=== PATIENT | female | born 1985 | race African-American/Black ===

== ENCOUNTER 2017-08-14 16:37 | Emergency (ER) | payer SELFPAY ==
[~2017-08-14] VITALS: Ht 170.2 cm; Wt 122.0 kg
[2017-08-14 17:08] LABS: BILIRUBIN,URINE NEGATIVE (NEG); GLUCOSE,URINE NEGATIVE (NEG); NITRITE,URINE NEGATIVE (NEG); PH,URINE 7.5; PROTEIN,URINE NEGATIVE (NEG-TRACE); UROBILINOGEN,URINE 0.2 mg/dL (0.2 mg/dL)
[2017-08-14 17:35] LABS: BACTERIA,URINE 0 /HPF (0-FEW); RBC,URINE RARE /HPF (0-2); SQUAMOUS EPITHELIAL CELL,UR FEW /LPF; WBC,URINE 0 /HPF (0-4)
[2017-08-14 17:50] LABS: BASO # 0.1 x10^3/uL (0.0-0.2); BASO % 1 % (0-3); EOS % 5 % (0-3); HEMATOCRIT 36.1 % (36.0-47.0); LYMPH % 35 % (24-48); MEAN CORPUSCULAR HEMOGLOBIN 27 pg (25-35); MEAN CORPUSCULAR HGB CONC 33 g/dL (31-37); MEAN CORPUSCULAR VOLUME 80 fL (79-100); MONO % 8 % (0-9); NEUT % 52 % (31-73); PLATELET COUNT 194 x10^3/uL (140-400); RED BLOOD COUNT 4.52 x10^6/uL (3.50-5.40); WHITE BLOOD COUNT 8.8 x10^3/uL (4.0-11.0)
[2017-08-14 18:00] LABS: CALCIUM 8.9 mg/dL (8.5-10.1); CREATININE 0.9 mg/dL (0.6-1.0); GFR 73.5; POTASSIUM 3.9 mmol/L (3.5-5.1)
[2017-08-14 18:06] LABS: ALBUMIN 3.6 g/dL (3.4-5.0); ALBUMIN/GLOBULIN RATIO 0.9 (1.0-1.7); TOTAL BILIRUBIN 0.1 mg/dL (0.2-1.0); TOTAL PROTEIN 7.4 g/dL (6.4-8.2)
[2017-08-14] MEDS: IV RINGERS,LACTATED 1000ML 1,000 ML IV SCH (18:12)
[2017-08-14] MEDS: fentaNYL PF VIAL 100 MCG/2 ML VIAL IV PRN (18:13)
[2017-08-14] MEDS: ONDANSETRON PF 4 MG/2 ML VIAL. IV ONE (18:14)
[2017-08-14] MEDS: KETOROLAC 30 MG/ML INJ. IV ONE (18:14)
--- NOTE | 2017-08-14 19:17 | ED.ADGEN ---
Past Medical History Past Medical History: Anemia, Asthma, Other Additional Past Medical Histor: SICKLE CELL TRAIT, GENITAL HERPES Past Surgical History: Other Additional Past Surgical Histo: ELBOW SX Alcohol Use: None Drug Use: None Adult General Chief Complaint Chief Complaint: ABDOMINAL PAIN HPI HPI Patient is a 32 year old woman, history of anemia, genital herpes, who presents to the emergency department with complaint of sudden onset of left pelvic pain that began approximately an hour and a half to 2 hours prior to arrival. Patient's issues at work which began experiencing sharp shooting pain in her left pelvic region, states associated with mild nausea, states she is not taking any medication prior to coming to the ED. Patient states she has very uncomfortable, states the pain is radiating to her back somewhat, also up into the periumbilical region, denies any similar symptoms previously, denies any urinary complaints, any discharge or drainage from the vagina, any lesions in the vagina, any concerns for STI exposure, states that she was last sexually active 2 days ago, no insertions or injuries to the vagina, abdomen or the back. No swelling extremities, no rashes, no chest pain or shortness breath, no weakness, numbness or tingling. No cough, fevers or chills. Denies any possibility of . Review of Systems Review of Systems Constitutional: Denies fever or chills. [] Eyes: Denies change in visual acuity. [] HENT: Denies nasal congestion or sore throat. [] Respiratory: Denies cough or shortness of breath. [] Cardiovascular: Denies chest pain or edema. [] GI: Pelvic pain, associated with nausea, no vomiting, bloody stools or diarrhea. : Denies dysuria. [] Musculoskeletal: Denies back pain or joint pain. [] Integument: Denies rash. [] Neurologic: Denies headache, focal weakness or sensory changes. [] Endocrine: Denies polyuria or polydipsia. [] Lymphatic: Denies swollen glands. [] Psychiatric: Denies depression or anxiety. [] Current Medications Current Medications Current Medications Medications (Trade) Dose Ordered Sig/Manuel Start Time Stop Time Status Last Admin Dose Admin Acetaminophen/ Hydrocodone Bitart (Lortab 5/325) 1 tab 1X ONCE 08/14/17 21:30 08/14/17 21:31 DC Fentanyl Citrate (Fentanyl 2ml Vial) 25 mcg PRN Q15MIN PRN 08/14/17 17:45 08/15/17 17:44 08/14/17 18:13 25 MCG Ketorolac Tromethamine (Toradol) 10 mg 1X ONCE 08/14/17 18:15 08/14/17 18:16 DC 08/14/17 18:14 10 MG Ondansetron HCl (Zofran) 4 mg 1X ONCE 08/14/17 18:15 08/14/17 18:16 DC 08/14/17 18:14 4 MG Ringer's Solution 1,000 ml @ 1,000 mls/hr Q1H 08/14/17 17:40 08/14/17 18:39 DC 08/14/17 18:12 1,000 MLS/HR Allergies Allergies Allergies Coded Allergies Type Severity Reaction Last Updated Verified No Known Drug Allergies 08/14/17 No Physical Exam Physical Exam Constitutional: Well developed, well nourished, no acute distress, non-toxic appearance. [] HENT: Normocephalic, atraumatic, bilateral external ears normal, oropharynx moist, no oral exudates, nose normal. [] Eyes: PERRLA, EOMI, conjunctiva normal, no discharge. [] Neck: Normal range of motion, no tenderness, supple, no stridor. [] Cardiovascular:Heart rate regular rhythm, no murmur , S1, S2, no rubs or gallops.[] Lungs & Thorax: Bilateral breath sounds clear to auscultation, no wheezing, rhonchi, rales. No chest wall crepitus or tenderness. [] Abdomen: Bowel sounds normal, soft, patient was tender to palpation the suprapubic region, and in the pelvis, left-sided greater than right, no pain above the pelvic region, no masses, no pulsatile masses. [] Skin: Warm, dry, no erythema, no rash. [] Back: No tenderness, no CVA tenderness. [] Extremities: No tenderness, no cyanosis, no clubbing, ROM intact, no edema. [] Neurologic: Alert and oriented X 3, normal motor function, normal sensory function, no focal deficits noted. [] Psychologic: Affect normal, judgement normal, mood normal. [] Pelvic examination: Patient external examination is normal without any lesions or abnormalities identified. I am anal examination reveals reproducible symptoms with cervical motion tenderness, tenderness palpation in both adnexa which is mild, without any masses palpated. Speculum examination reveals moderate amount of white discharge, cervix without friability, no bleeding, lesions, or other maladies identified. Specimens taken without issue. Current Patient Data Vital Signs Vital Signs Date Time Temp Pulse Resp B/P (MAP) Pulse Ox O2 Delivery O2 Flow Rate FiO2 08/14/17 21:00 70 16 87/50 (62) 97 Room Air 08/14/17 16:38 98.5 98.5 Lab Values Laboratory Tests Test 08/14/17 16:45 08/14/17 16:57 White Blood Count 8.8 x10^3/uL (4.0-11.0) Red Blood Count 4.52 x10^6/uL (3.50-5.40) Hemoglobin 12.0 g/dL (12.0-15.5) Hematocrit 36.1 % (36.0-47.0) Mean Corpuscular Volume 80 fL (79-100) Mean Corpuscular Hemoglobin 27 pg (25-35) Mean Corpuscular Hemoglobin Concent 33 g/dL (31-37) Red Cell Distribution Width 14.0 % (11.5-14.5) Platelet Count 194 x10^3/uL (140-400) Neutrophils (%) (Auto) 52 % (31-73) Lymphocytes (%) (Auto) 35 % (24-48) Monocytes (%) (Auto) 8 % (0-9) Eosinophils (%) (Auto) 5 % (0-3) H Basophils (%) (Auto) 1 % (0-3) Neutrophils # (Auto) 4.6 x10^3uL (1.8-7.7) Lymphocytes # (Auto) 3.0 x10^3/uL (1.0-4.8) Monocytes # (Auto) 0.7 x10^3/uL (0.0-1.1) Eosinophils # (Auto) 0.4 x10^3/uL (0.0-0.7) Basophils # (Auto) 0.1 x10^3/uL (0.0-0.2) Sodium Level 139 mmol/L (136-145) Potassium Level 3.9 mmol/L (3.5-5.1) Chloride Level 103 mmol/L (98-107) Carbon Dioxide Level 26 mmol/L (21-32) Anion Gap 10 (6-14) Blood Urea Nitrogen 14 mg/dL (7-20) Creatinine 0.9 mg/dL (0.6-1.0) Estimated GFR (Cockcroft-Gault) 73.5 BUN/Creatinine Ratio 16 (6-20) Glucose Level 98 mg/dL (70-99) Calcium Level 8.9 mg/dL (8.5-10.1) Total Bilirubin 0.1 mg/dL (0.2-1.0) L Aspartate Amino Transferase (AST) 18 U/L (15-37) Alanine Aminotransferase (ALT) 18 U/L (14-59) Alkaline Phosphatase 62 U/L (46-116) Total Protein 7.4 g/dL (6.4-8.2) Albumin 3.6 g/dL (3.4-5.0) Albumin/Globulin Ratio 0.9 (1.0-1.7) L Lipase 153 U/L (73-393) Urine Collection Type Void Urine Color Straw Urine Clarity Clear Urine pH 7.5 Urine Specific [place] 1.015 Urine Protein Negative mg/dL (NEG-TRACE) Urine Glucose (UA) Negative mg/dL (NEG) Urine Ketones (Stick) Negative mg/dL (NEG) Urine Blood Negative (NEG) Urine Nitrite Negative (NEG) Urine Bilirubin Negative (NEG) Urine Urobilinogen Dipstick 0.2 mg/dL (0.2 mg/dL) Urine Leukocyte Esterase Negative (NEG) Urine RBC Rare /HPF (0-2) Urine WBC 0 /HPF (0-4) Urine Squamous Epithelial Cells Few /LPF Urine Bacteria 0 /HPF (0-FEW) POC Urine HCG, Qualitative Hcg negative (Negative) Laboratory Tests 08/14/17 16:45 Laboratory Tests 08/14/17 16:45 Microbiology 08/14/17 Wet Prep - Final, Complete EKG EKG Not indicated.[] Radiology/Procedures Radiology/Procedures [][facility] [address] [place] [address] IMAGING REPORT Signed PATIENT: ROSALINDA JANE ACCOUNT: [id number] : 1985 LOCATION: ER AGE: 32 SEX: F EXAM STATUS: REG ER ORD. PHYSICIAN: DC MINER DO REASON: Pelvic pain, CMT, L abd pain PROCEDURE: PELVIS W/TV EXAM: PELVIS W/TV HISTORY: pelvic pain COMPARISON: None. TECHNIQUE: Transverse and longitudinal sonography of the pelvis is performed utilizing transabdominal and transvaginal transducers. FINDINGS: Transabdominal imaging demonstrates an anteflexed uterus measuring 9.1 x 4.2 x 4.6 cm. Endometrial thickness measured at 7 mm. No focal myometrial abnormality is seen on the provided images. Left ovary visualized measuring 3.4 x 2.0 x 3.2 cm, with internal blood flow documented. Right ovary visualized measuring 4.0 x 3.7 x 4.2 cm, with internal blood flow documented. A 2.7 cm, simple appearing cyst is seen within the right ovary. No free fluid is seen within the provided images. Transvaginal imaging demonstrates simple appearing free fluid present within the cul-de-sac. Nabothian cysts are seen within the cervix. Uterus is anteflexed measuring 7.4 x 4.9 x 5.3 cm. Myometrium appears homogenous. Left ovary is visualized measuring 2.8 x 1.7 x 3.7 cm, with internal blood flow documented. Right ovary is visualized measuring 3.6 x 3.2 x 4.2 cm, with internal blood flow documented. A 2.0 cm cyst is seen within the right ovary, which contains a single internal thin septation. IMPRESSION: 1. Normal endometrial thickness. 2. A 2 to 2.7 cm cyst is seen in the right ovary, within normal limits in a premenopausal patient. Left ovary is normal in appearance. Blood flow documented within both ovaries. 3. Simple appearing free fluid present in the cul-de-sac, may be physiologic or possibly secondary to a small ruptured cyst. Electronically signed by: Gabbi Casillas MD (08/14/2017 9:04 PM) [facility] DICTATED and SIGNED BY: GABBI CASILLAS MD DATE: 08/14/17 2100 CC: DC MINER DO; UNKNOWN PCP NAME ~ Course & Med Decision Making Course & Med Decision Making Pertinent Labs and Imaging studies reviewed. (See chart for details) Due to patient's discomfort, and examination, ultrasound of the pelvis ordered to further elucidate her symptoms. Laboratory studies including wet prep and GC chlamydia are ordered. Receiving analgesia, IV fluids, antiemetics. As wet prep is unremarkable, urinalysis is also unremarkable, no evidence of concerning findings and her laboratory studies. Ultrasound reveals evidence of small amount of free fluid, with normal blood flow, examination history, and ultrasound findings are consistent with a likely small ruptured ovarian cyst. I did discuss this with patient, who is resting comfortably after receiving Toradol in the ED. Patient has not exhibited any new or concerning symptoms, discussed likelihood of a ruptured ovarian cyst, and pain that we'll be residual as the fluid is reabsorbed, also instruct the patient to follow-up with her [employer], patient voiced understanding and agreement with this plan, states she'll be able to do so, in the meantime will use any for her medications , and a short course of opiate medications as needed, patient was given precautions on both these medications, and prescription instructions. Patient is agreeable plan to be discharged to follow-up as stated, given prescriptions and work no, patient ambulating without difficulty upon exiting the emergency department is stable condition with her mother with plan and precautions as stated. Dragon Disclaimer Dragon Disclaimer This electronic medical record was generated, in whole or in part, using a voice recognition dictation system. Departure Impression: Primary Impression: Ruptured ovarian cyst Additional Impression: Abdominal pain Disposition: 01 HOME, SELF-CARE Condition: IMPROVED Scripts Naproxen (NAPROSYN) 500 Mg Tablet 500 MG PO PRN QID Y for PAIN, #8 TAB Prov: DC MINER DO 08/14/17 Hydrocodone Bit/Acetaminophen (HYDROCODONE-APAP 5-325 ) 1 Each Tablet 1 TAB PO PRN Q6HRS Y for PAIN, #9 TAB 0 Refills Prov: DC MINER DO 08/14/17 Problem Qualifiers DC MINER DO Aug 14, 2017 19:17
--- NOTE | 2017-08-14 21:07 | RAD ---
EXAM: PELVIS W/TV HISTORY: pelvic pain COMPARISON: None. TECHNIQUE: Transverse and longitudinal sonography of the pelvis is performed utilizing transabdominal and transvaginal transducers. FINDINGS: Transabdominal imaging demonstrates an anteflexed uterus measuring 9.1 x 4.2 x 4.6 cm. Endometrial thickness measured at 7 mm. No focal myometrial abnormality is seen on the provided images. Left ovary visualized measuring 3.4 x 2.0 x 3.2 cm, with internal blood flow documented. Right ovary visualized measuring 4.0 x 3.7 x 4.2 cm, with internal blood flow documented. A 2.7 cm, simple appearing cyst is seen within the right ovary. No free fluid is seen within the provided images. Transvaginal imaging demonstrates simple appearing free fluid present within the cul-de-sac. Nabothian cysts are seen within the cervix. Uterus is anteflexed measuring 7.4 x 4.9 x 5.3 cm. Myometrium appears homogenous. Left ovary is visualized measuring 2.8 x 1.7 x 3.7 cm, with internal blood flow documented. Right ovary is visualized measuring 3.6 x 3.2 x 4.2 cm, with internal blood flow documented. A 2.0 cm cyst is seen within the right ovary, which contains a single internal thin septation. IMPRESSION: 1. Normal endometrial thickness. 2. A 2 to 2.7 cm cyst is seen in the right ovary, within normal limits in a premenopausal patient. Left ovary is normal in appearance. Blood flow documented within both ovaries. 3. Simple appearing free fluid present in the cul-de-sac, may be physiologic or possibly secondary to a small ruptured cyst. Electronically signed by: Natalie Cline MD (08/14/2017 9:04 PM) [facility]
[2017-08-14 21:26] VITALS: BP 101/53
[2017-08-14] MEDS ORDERED: HYDR-2758 PO (21:30)
[2017-08-14] MEDS ORDERED: NAPR-683 PO (21:30)
[2017-08-14] MEDS: HYDROcodone/APAP 5/325MG 1 TAB TABLET PO ONE (21:38)
== END 2017-08-14 21:45 | disposition home or self-care (01) ==
LOC: ER 16:37
DX: N83.201 Unspecified ovarian cyst, right side (principal); J45.909 Unspecified asthma, uncomplicated; Z86.2 Personal history of diseases of the blood and blood-forming organs and certain disorders involving the immune mechanism
CPT/HCPCS: 36415; 76830; 76856; 80053; 81001; 81025; 83690; 85025; 87491; 87591; 96361; 96374; 96375; 99285; J1885; J2405; J3010; Q0111; J7120